=== PATIENT | male | born 1945 | race Caucasian/White ===

== ENCOUNTER 2019-01-12 08:18 | Emergency (ER) | payer MEDICARE ==
[2019-01-12 08:25] VITALS: BP 143/83; PULSE 82; RESP 20; TEMP 97.5
[2019-01-12] MEDS ORDERED: KETOROLAC 60 MG/2 ML VIAL IM STA (08:42)
--- NOTE | 2019-01-12 09:29 | XR ---
Right knee HISTORY: Swelling and pain 3 views of the right knee Bone mineralization, joint spaces and alignment are maintained. No fracture or dislocation. Soft tiss ue calcifications are likely vascular. No evident joint effusion. Suspect some soft tissue swelling i n the prepatellar location. IMPRESSION: Soft tissue swelling.
--- NOTE | 2019-01-12 10:00 | ED ---
General Adult HPI - General Chief complaint: Extremity Problem,Nontraumatic Stated complaint: Leg swelling Time Seen by Provider: 01/12/19 08:20 Source: patient, RN notes reviewed Mode of arrival: ambulatory Limitations: no limitations - History of Present Illness Initial comments: This is a 73-year-old male who presents emergency Department complaining of some tenderness to the anterior aspect of the patella. Patient states there is a little swollen and red and painful to touch. Patient states his been no injury to the knee. Patient was worried about a DVT but has no tenderness to the posterior leg calf and has no swelling. Patient only area of concern is the anterior aspect of the patella - Related Data Home Medications Medication Instructions Recorded Confirmed Allopurinol [Zyloprim] 300 mg PO DAILY 01/12/19 01/12/19 Finasteride [Proscar] 5 mg PO HS 01/12/19 01/12/19 Insulin Glargine [Lantus] 65 units SQ HS 01/12/19 01/12/19 Liraglutide [Victoza 3-Nasim] 1.2 mg SQ HS 01/12/19 01/12/19 Lisinopril [Zestril] 20 mg PO DAILY 01/12/19 01/12/19 Pantoprazole Sodium [Protonix] 40 mg PO DAILY 01/12/19 01/12/19 Pravastatin Sodium [Pravachol] 40 mg PO HS 01/12/19 01/12/19 Pregabalin [Lyrica] 150 mg PO BID 01/12/19 01/12/19 Previous Rx's Medication Instructions Recorded Dicloxacillin Sodium 500 mg PO Q6HR #40 cap 01/12/19 Allergies Allergy/AdvReac Type Severity Reaction Status Date / Time morphine AdvReac Vomiting Verified 01/12/19 09:13 Review of Systems ROS Statement: Those systems with pertinent positive or pertinent negative responses have been documented in the HPI. ROS Other: All systems not noted in ROS Statement are negative. Past Medical History Past Medical History: Diabetes Mellitus, Hyperlipidemia, Hypertension History of Any Multi-Drug Resistant Organisms: None Reported Past Surgical History: Back Surgery Past Psychological History: No Psychological Hx Reported Smoking Status: Never smoker Past Alcohol Use History: Occasional Past Drug Use History: None Reported General Exam - General Exam Comments Initial Comments: GENERAL Patient is well-developed and well-nourished. Patient is in mild distress. EYES Patient's pupils are equal and round. Extraocular motion is intact SKIN Unremarkable NEURO The patient is alert and oriented 3 PYSCH Patient has normal interpersonal interactions. MUSCULOSKELETAL Anterior patella is warm slightly fluctuant and tender. Patient has no calf tenderness or leg swelling Limitations: no limitations Course Vital Signs 01/12/19 08:22 Temperature 97.5 F L Pulse Rate 82 Respiratory 20 Rate Blood Pressure 143/83 O2 Sat by Pulse 99 Oximetry Medical Decision Making - Medical Decision Making X-ray shows some prepatellar soft tissue swelling Disposition Clinical Impression: Septic prepatellar bursitis Disposition: HOME SELF-CARE Condition: Good Instructions (If sedation given, give patient instructions): Knee Bursitis (ED) Prescriptions: Dicloxacillin Sodium 500 mg PO Q6HR #40 cap Is patient prescribed a controlled substance at d/c from ED?: No Referrals: Nonstaff,Physician [Primary Care Provider] - 1-2 days Time of Disposition: 09:59
== END 2019-01-12 10:10 | disposition home or self-care (01) ==
LOC: EC 08:18
DX: M71.161 Other infective bursitis, right knee (principal); E11.9 Type 2 diabetes mellitus without complications; E78.5 Hyperlipidemia, unspecified; I10 Essential (primary) hypertension; Z88.5 Allergy status to narcotic agent; Z79.4 Long term (current) use of insulin; Z79.899 Other long term (current) drug therapy
CPT/HCPCS: 73562; 99283; 96372; J1885